=== PATIENT | male | born 1935 | race Caucasian/White ===

== ENCOUNTER 2019-12-31 11:15 | Outpatient (CLI) | payer MEDICARE, SELFPAY ==
--- NOTE | ~2019-12-31 | XR_ITS ---
XR foot LT standing 2V, XR foot RT standing 2V 12/31/2019 12:13 Indication: Osteoarthritis. Procedure: 2 views of each foot Comparison: No prior studies for comparison. Findings: There is osteoarthritis of the first metatarsal-phalangeal joints bilaterally, moderate on the left and mild on the right. There is bilateral hallux valgus. There are mild degenerative changes of the interphalangeal joints. Osteopenia. Lisfranc joint intact. No acute fracture or traumatic mal alignment. There are small degenerative calcaneal enthesophytes at the plantar surface bilaterally. Impression: 1: Mild-moderate polyarticular osteoarthritis most advanced at the first MTP joints with bilateral rock llux valgus. Reviewed, dictated and finalized at location A. Impression: 1: Mild-moderate polyarticular osteoarthritis most advanced at the first MTP chelsey ints with bilateral hallux valgus. Impression: 1: Mild-moderate polyarticular osteoarthritis most advanced at the first MTP chelsey ints with bilateral hallux valgus.
--- NOTE | ~2019-12-31 | XR_ITS ---
XR sacroiliac joints min 3V 12/31/2019 12:13 Indication: Unspecified osteoarthritis. Procedure: 3 views of the sacroiliac joints Comparison: No prior studies for comparison. Findings: There is moderate symmetric degenerative changes of the sacroiliac joints with possible par tial ankylosis. No acute fracture or traumatic malalignment. Moderate lower lumbar spondylosis. There are radiation therapy implant seeds overlying the expected location of the prostate bed. There is a right total hip arthroplasty. Impression: 1: Moderate symmetric degenerative changes of the sacroiliac joints. Reviewed, dictated and finalized at location A. Impression: 1: Moderate symmetric degenerative changes of the sacroiliac joints.
--- NOTE | ~2019-12-31 | XR_ITS ---
XR hand BI arthritis min 3V 12/31/2019 12:13 Indication: Osteoarthritis Procedure: 4 views of each hand Comparison: No prior studies for comparison. Findings: There is mild polyarticular osteoarthritis of the interphalangeal joints as well as the fir st CMC, MCP and IP joints. Osteopenia. No erosive changes. No acute fracture or traumatic malalignmen t. No foreign bodies. Impression: 1: Mild-moderate polyarticular osteoarthritis. Reviewed, dictated and finalized at location A. Impression: 1: Mild-moderate polyarticular osteoarthritis.
[2019-12-31 12:44] LABS: Hemoglobin 13.1 g/dL (14.0-18.0); Mean Corpuscular Hemoglobin 29.5 pg (26-34); Mean Corpuscular Volume 92.3 fl (80-100); Mean Platelet Volume 8.5 fl (7.4-10.4); Platelet Count Result 252 k/mm3 (150-375); Red Blood Count 4.44 M/mm3 (4.6-6.20); Red Cell Distribution Width 13.6 % (11.5-14.5); White Blood Count 7.7 K/mm3 (4.5-10.0)
[2019-12-31 12:56] LABS: Alanine Aminotransferase 14 U/L (4-50); Albumin Level 4.4 g/dL (3.5-5.1); Alkaline Phosphatase 89 U/L (38-126); Aspartate Amino Transferase 26 U/L (17-59); Bilirubin,Total 0.2 mg/dL (0.2-1.3); Blood Urea Nitrogen 28 mg/dL (9-20); CRP 1.5 mg/dL (<1.0); Carbon Dioxide 26 mmol/L (22-30); Chloride 106 mmol/L (98-107); Estimated Glomerular Filt Rate 58; Glucose 90 mg/dL (75-110); Potassium 4.8 mmol/L (3.4-5.0); Rheumatoid Factor < 8.6 IU/ML (<12); Sodium 138 mmol/L (137-145)
[2019-12-31 12:57] LABS: Add Urine Microscopic? YES; Appearance Urine Clear (Clear); Bacteria Urine Trace /hpf; Bilirubin Urine Negative (Negative); Blood Urine Negative (Negative); Color Urine Yellow (Yellow); Glucose Urine UA Negative (Negative); Ketones Urine Negative (Negative); Leukocyte Esterase Ur Negative LEU/UL (Negative); Mucus Urine Rare /lpf; Nitrate Urine Negative (Negative); Protein Urine Negative (Negative); RBC Urine 0-2 /hpf (0-2); Specific Grav Ur 1.024 (1.001-1.035); Squamous Epithelial Cell Urine Rare /hpf (Few); Urobilinogen Urine Negative mg/dL (<2.0); WBC Urine 0-3 /hpf
[2019-12-31 14:07] LABS: Erythrocyte Sedimentation Rate 16 mm/hr (0-20)
[2020-01-02 16:22] LABS: HLA B27 Positive (Negative)
[2020-01-03 12:00] LABS: Anti Cyclic Citrullinated Pept <16 Units (<20)
== END 2019-12-31 11:16 | disposition home or self-care (01) ==
PROVIDERS: PCP Family Medicine; Visit Provider Internal Medicine
DX: M19.041 Primary osteoarthritis, right hand (principal); M19.042 Primary osteoarthritis, left hand; M53.3 Sacrococcygeal disorders, not elsewhere classified; M19.071 Primary osteoarthritis, right ankle and foot; M19.072 Primary osteoarthritis, left ankle and foot; M20.11 Hallux valgus (acquired), right foot; M20.12 Hallux valgus (acquired), left foot
CPT/HCPCS: 36415; 72202; 73130; 73620; 80053; 81001; 85027; 85652; 86038; 86039; 86140; 86200; 86430; 86812

== ENCOUNTER 2020-04-05 11:04 | Outpatient (CLI) | payer MEDICARE, SELFPAY ==
--- NOTE | ~2020-04-05 | XR_ITS ---
EXAMINATION: XR lumbar spine min 4V DATE: 04/05/2020 11:44 INDICATION: Ankylosing spondylitis of the lumbosacral region TECHNIQUE: Anteroposterior, lateral, and bilateral oblique views of the lumbar spine, and cone-down l ateral view of the lumbosacral junction were obtained. COMPARISON: None. FINDINGS: There are 4 mm of anterolisthesis of L4 on L5. There is no fracture. There is lumbar dextro curvature. There is severe asymmetric loss of intervertebral disc space height on the left at L3-4. T here is moderate loss of intervertebral disc space height at L2-3 and L5-S1. The vertebral body heigh ts are maintained. There is severe facet osteoarthritis of the lower lumbar spine. Changes of right t otal hip arthroplasty are noted. Degenerative osteophytes project from the anterior endplates of mult iple vertebral bodies. Calcified atherosclerosis is noted. There are radiation seeds in the prostate. IMPRESSION: 1. Severe lumbar spondylosis without acute findings. Reviewed, dictated and finalized at location A.
[2020-04-05 12:52] LABS: CRP 2.4 mg/dL (<1.0)
[2020-04-05 12:55] LABS: Complement C3 114 mg/dL (88-165)
[2020-04-05 13:03] LABS: Erythrocyte Sedimentation Rate 28 mm/hr (0-20)
[2020-04-08 12:04] LABS: SS-A <1.0; SS-B <1.0
[2020-04-08 13:25] LABS: NIL 0.01 IU/mL; Quantiferon TB Plus, 1T NEGATIVE (NEGATIVE); TB1-NIL 0.01 IU/mL; TB2-NIL 0.01 IU/mL
[2020-04-15 15:46] LABS: SM Antibody <1.0 AI
[2020-04-15 15:47] LABS: SM/RNP Antibody <1.0 AI
== END 2020-04-05 11:05 | disposition home or self-care (01) ==
PROVIDERS: PCP Family Medicine; Visit Provider Internal Medicine
DX: M45.7 Ankylosing spondylitis of lumbosacral region (principal); M19.90 Unspecified osteoarthritis, unspecified site
CPT/HCPCS: 36415; 72110; 85652; 86140; 86160; 86225; 86235; 86480

== ENCOUNTER 2020-04-10 12:20 | Outpatient (CLI) | payer MEDICARE, SELFPAY ==
--- NOTE | ~2020-04-10 | MR_ITS ---
EXAMINATION: MRI SACRUM W/O CONTRAST DATE: 04/10/2020 13:49 INDICATION: Ankylosing spondylitis of the lumbosacral region. Polyarticular osteoarthritis. Left-side d low back/buttock pain. TECHNIQUE: Magnetic resonance imaging (MRI) of the sacroiliac joints was performed without intravenou s contrast. Sequences included sagittal T1-weighted FSE and fluid sensitive FSE STIR; oblique axial T1-weighted FSE, fluid sensitive FSE STIR and T1-weighted FS FSE; oblique coronal T2-weighted FSE, T1 -weighted FSE and fluid sensitive FSE STIR. Postcontrast oblique axial and coronal T1-weighted FS FSE were also obtained. COMPARISON: Sacroiliac joint radiographs dated 12/31/2019 FINDINGS: Magnetic corrales artifact associated with a right total hip arthroplasty which obscures the bone and s oft tissues in the immediate vicinity right acetabulum and hip joint space. More subtle tiny foci of signal artifact associated with multiple brachytherapy seeds in the region of the small either atroph ic or partially resected prostate. Mild diffuse bladder wall thickening with mildly trabeculated muco rambo contour likely related to chronic outlet obstruction. Multiple diverticula without adjacent infla mmatory stranding along the sigmoid colon. No pathologically enlarged pelvic or inguinal lymphadenopa thy. No free fluid in the pelvis. Lower lumbar spondylosis. This includes moderate disc height loss with vacuum phenomena at L5-S1 and mild right-sided disc height loss at L4-L5. There are disc bulges at both L4-L5 which contributes to moderate central canal stenosis and at L5-S1 contributing to minimal central canal stenosis. Bilater al facet osteoarthritis at L4-L5 and mild left and moderate right sided facet osteoarthritis at L5-S1 . Neural foraminal stenosis, moderate bilaterally at L4-L5 and on the right at L5-S1 and mild on the left at L5-S1. Relatively symmetric moderate inferior predominant nonuniform joint space narrowing at the bilateral sacroiliac joints with small osteophytes along the anterior margins of the joint space. There are no associated cortical erosions or appreciable subcortical reactive edema or enhancement along the joint lines to suggest an inflammatory sacroiliitis. IMPRESSION: 1. Moderate osteoarthritis at the bilateral sacroiliac joints with no erosions or appreciable inflamm atory changes to suggest an inflammatory sacroiliitis. 2. Moderate to severe lower lumbar spondylosis. Reviewed, dictated and finalized at location A. IMPRESSION: 1. Moderate osteoarthritis at the bilateral sacroiliac joints with no erosions or appreciable inflammatory changes to suggest an inflammatory sacroiliitis. 2. Moderate to severe lower lumbar spondylosis.
[2020-04-10 12:52] LABS: Estimated Glomerular Filt Rate 58
== END 2020-04-10 12:21 | disposition home or self-care (01) ==
PROVIDERS: PCP Family Medicine; Visit Provider Internal Medicine
DX: M45.7 Ankylosing spondylitis of lumbosacral region (principal); M15.9 Polyosteoarthritis, unspecified; M47.818 Spondylosis without myelopathy or radiculopathy, sacral and sacrococcygeal region; M47.816 Spondylosis without myelopathy or radiculopathy, lumbar region
CPT/HCPCS: 72197; A9577

== ENCOUNTER 2022-09-26 10:29 | Emergency (ER) | payer MEDICARE, SELFPAY ==
[2022-09-26 10:35] VITALS: BP 143/61; PULSE 83; RESP 14; TEMP 37; O2SAT 96
--- NOTE | 2022-09-26 10:55 | ED.SOB ---
HPI - SOB/Dyspnea General Chief Complaint: Shortness of Breath/Dyspnea Stated Complaint: Shortness of Breath Source: patient, family and RN notes reviewed History of Present Illness HPI Narrative: 87-year-old male presents to urgent care with daughter at side. Patient states he has been taking increasingly short of breath over the last month. Patient reports developing left-sided chest pain, not radiating, this morning. Patient states he had a pneumothorax this past January and his symptoms are similar today. Patient is also reporting increased weakness over last couple months. Denies any recent illness including fevers or chills. Some parts of this dictation were generated by voice recognition software and may contain typographical and/or grammatical inaccuracies. Related Data Home Medications Medication Instructions Recorded Confirmed aspirin 81 mg tablet,delayed 81 mg PO DAILY 07/21/19 09/26/22 release (Adult Low Dose Aspirin) loperamide 2 mg capsule (Imodium 2 mg PO DAILY PRN Diarrhea 07/21/19 09/26/22 A-D) metformin 500 mg tablet 750 mg PO BID 07/21/19 09/26/22 mqmyixpd-ruv-jsfds acid 0.4 1 tablet PO DAILY 07/21/19 09/26/22 mg-lycopene 300 mcg-lutein 250 mcg tablet (Centrum Silver) oxybutynin chloride 5 mg tablet 5 mg PO DAILY 07/21/19 09/26/22 oxycodone 10 mg tablet 10 mg PO Q6H PRN Pain 07/21/19 09/26/22 sertraline 100 mg tablet 100 mg PO DAILY 07/21/19 09/26/22 Allergies Allergy/AdvReac Type Severity Reaction Status Date / Time nitroglycerin Allergy Severe Other Verified 09/26/22 10:50 Penicillins Allergy Mild Itching Verified 04/13/20 14:05 Review of Systems Review of Systems: CONSTITUTIONAL: Denies fever, chills, or sweats. EYES: Denies visual changes, redness, or discharge. ENT: Denies otalgia and sore throat CARDIOVASCULAR: Reports chest pain RESPIRATORY: reports dyspnea GASTROINTESTINAL: Denies abdominal pain, nausea, vomiting, or diarrhea. GENITOURINARY: Denies dysuria or hematuria. SKIN: Denies rash or itching. MUSCULOSKELETAL: Denies back pain, joint pain, or myalgia. NEUROLOGIC: Reports generalized weakness. [facility]LY [facility] Past Medical History Medical History (Updated 09/26/22 @ 11:02 by Janice De Guzman, [employer]) Allergies Ankylosing spondylitis of lumbosacral region (~1954) Arthritis Cancer Diabetes Generalized osteoarthritis of multiple sites Prostate cancer Surgical History Surgical History H/O shoulder surgery History of hip surgery History of knee replacement Hx of cholecystectomy Family History Family History Mother Acute myocardial infarction Father Cancer Sibling Acute myocardial infarction Social History Social History Smoking packs per day: 1 Smoking cigarettes per day: 20.0 Years smoked: 60 Smoking pack-years: 60.00 Smoking status: Current every day smoker Alcohol intake: current Drinks per week: 2 Comments At the time of my signature, I reviewed and agree with the nursing past medical, surgical, social, and family history. There is no relevant family history pertinent to the patient complaint. Exam Narrative: GENERAL: This is a well-nourished, well-developed patient, in no apparent distress. HEAD: normocephalic, atraumatic. EYES: PERRL. Sclera clear/white. Vision is grossly intact. EARS: External ears normal, auditory canals clear and without drainage, TMs normal without perforation. Hearing grossly intact. NOSE: External nose normal with no obvious nasal discharge, nares without redness, no rhinorrhea. THROAT: Mucous membranes moist, posterior pharynx clear. NECK: Neck supple, non-tender without lymphadenopathy, masses or thyromegaly. CARDIOVASCULAR: Regular rate and rhythm without murmurs, gallops, or rubs. RESPIRATORY: Clear to auscultation. Breath sounds equal bilaterally. No wheezes,
== END 2022-09-26 11:23 | disposition short-term general hospital (02) ==
PROVIDERS: Emergency Provider Nurse Practitioner Family; PCP Family Medicine
DX: R06.00 Dyspnea, unspecified (principal); R07.9 Chest pain, unspecified; F17.210 Nicotine dependence, cigarettes, uncomplicated; M19.90 Unspecified osteoarthritis, unspecified site; E11.9 Type 2 diabetes mellitus without complications; Z85.46 Personal history of malignant neoplasm of prostate; M45.7 Ankylosing spondylitis of lumbosacral region
CPT/HCPCS: 99215; G0463

== ENCOUNTER 2023-02-12 10:02 | Outpatient (CLI) | payer MEDICARE, SELFPAY ==
[2023-02-12 10:41] LABS: Anion Gap 0 mmol/L (8-16); Blood Urea Nitrogen 31 mg/dL (9-20); Calcium 8.3 mg/dL (8.4-10.2); Carbon Dioxide 31 mmol/L (22-30); Chloride 106 mmol/L (98-107); Estimated Glomerular Filt Rate > 60; Glucose 157 mg/dL (65-110); Potassium 4.3 mmol/L (3.4-5.0); Sodium 137 mmol/L (137-145)
== END 2023-02-12 10:03 | disposition home or self-care (01) ==
LOC: ANHSURGERY 10:06
PROVIDERS: Anesthesiology; PCP Family Medicine; Visit Provider Urology
DX: Z01.818 Encounter for other preprocedural examination (principal); E11.9 Type 2 diabetes mellitus without complications
CPT/HCPCS: 36415; 80048

== ENCOUNTER 2023-02-14 03:21 | Day surgery (SDC) | payer MEDICARE, SELFPAY ==
[2023-02-08 09:19] VITALS: BMI 23.1
--- NOTE | 2023-02-08 09:46 | PC.NURSE ---
Addendum entered by Tatyana Hill RN 02/08/23 13:56: REVIEWED MEDS AND MEDICAL HX WITH DAUGHTER. SHE STATES THAT PT TAKES DULOXETINE AT NIGHT, SO WILL NOT GIVE MORNING OF SURGERY AND WILL GIVE NIGHT BEFORE USUAL. REVIEWED PRE-OP INSTRUCTIONS. SHE RELAYS UNDERSTANDING. Original Note: Report to the Outpatient Waiting Room, entrance under the green pavilion located off [facility], at time __6:30AM on date __02/14/23 . Planned Procedure Time: __8:30AM . Time changes happen often and if your time is changed the preop area will call you the afternoon before. - You and your visitor will be asked to self-screen and do not enter if you have any COVID symptoms. - A mask is optional within the hospital at this time. Patients may have clear liquids (water, carbonated beverages, clear teas, apple juice) until 3 hours prior to surgery with a maximum of 20 ounces. - No food from midnight until time of surgery Take the following medications with a SIP of water the morning of surgery: _AMLODIPINE, DULOXETINE, FLONASE NASAL SPRAY, STIOLTO INHALER, METOPROLOL, OXYCODONE DO NOT STOP ANY OF YOUR OTHER PRESCRIPTION MEDICATIONS PRIOR TO SURGERY ?EXCEPT THE FOLLOWING Medications to discontinue per physician ___PLAVIX & ASPIRIN- HOLD PER DR HAMMOND Date to take last dose Please no make-up, nail thai, hairspray, perfume, deodorant, or body powder the day of surgery. No jewelry (including any body piercings) or valuables the day of surgery, leave them at home. Please take a shower or bath the night before, or the morning of, surgery with an antibacterial soap. Wear comfortable, loose fitting clothing. Children are encouraged to wear pajamas. - Jewelry must be removed prior to entering the operating room. Rings and piercings that are not removed may be cut off. - The hospital will not accept responsibility for valuables. - Please leave all valuables, including medications, at home the day of surgery. If you are going home after surgery, a licensed trailer tank truck driver must drive you home. - NO public transportation without another adult if you receive anesthesia. - We recommend that an adult stay with you for 24 hours following discharge. - We also recommend that you do not drive, make important decision, drink alcoholic beverages, or take any drugs that were not prescribed by your health care provider for at least 24 hours after your discharge time. Follow any additional instructions given to you from your surgeon. If you or anyone in your household have experienced Covid symptoms in the past week, please notify your surgeon or the nurse liaison at the phone number below for possible testing. Telephone instructions given to __PATIENT and asked if any additional questions and then verbalized understanding. Patient advised to call surgeon office or pre surgery nurse liaison [phone] if any additional questions.
--- NOTE | 2023-02-14 06:23 | WPDHPUPDATE1 ---
History and Physical Update Update Date/Time: 02/14/23 06:23 History and Physical has been reviewed, including an updated exam of the patient. There are NO changes in the patient's condition. Risks, benefits, and alternatives have been discussed and questions answered. Patient agrees to proceed with procedure.
[2023-02-14 07:27] VITALS: BP 110/72; PULSE 119; RESP 16; TEMP 36.2; O2SAT 94
[2023-02-14] MEDS: LACTATED RINGERS 1,000 ML 30 ML IV CONT (07:30)
--- NOTE | 2023-02-14 07:45 | WPDANESEPPF ---
Anes - Initial Pre Proc Eval Procedure: Operation Date: 02/14/23 08:30 Proposed Procedures p Cystoscopy with Urethral Dilatation - Alexandre Bella MD Date/Time: 02/14/23 07:45 Surgeon: Alexandre Bella MD Pre Op Diagnosis: Hesitancy,low urinary tract sym Patient Data Age: 87 Gender: M Height: 1.78 m Weight: 75.7 kg Last Vital Signs Temp 36.2 C L 02/14/23 07:27 Pulse 119 H 02/14/23 07:27 Resp 16 02/14/23 07:27 BP 110/72 02/14/23 07:27 Pulse Ox 94 02/14/23 07:27 O2 Del Method Room Air 02/14/23 07:27 Allergies Allergy/AdvReac Type Severity Reaction Status Date / Time nitroglycerin Allergy Severe CONVULSIONS , Verified 02/14/23 06:48 IN ICU FOR SEVERAL DAYS Penicillins Allergy Mild Itching Verified 02/14/23 06:48 Home Medications Medication Instructions Recorded Confirmed Type aspirin 81 mg tablet,delayed 81 mg PO DAILY 07/21/19 02/08/23 History release (Adult Low Dose Aspirin) vtvnorir-ahj-rkrhd acid 0.4 1 tablet PO DAILY 07/21/19 02/08/23 History mg-lycopene 300 mcg-lutein 250 mcg tablet (Centrum Silver) oxycodone 10 mg tablet 10 mg PO Q6H PRN Pain 07/21/19 02/08/23 History amlodipine 5 mg tablet 5 mg PO DAILY 02/08/23 02/08/23 History atorvastatin 20 mg tablet 20 mg PO HS 02/08/23 02/08/23 History celecoxib 200 mg capsule 200 mg PO BID 02/08/23 02/08/23 History clopidogrel 75 mg tablet 75 mg PO DAILY 02/08/23 02/08/23 History duloxetine 60 mg capsule,delayed 60 mg PO HS 02/08/23 02/08/23 History release fluticasone propionate 50 2 spray intranasal DAILY PRN 02/08/23 02/08/23 History mcg/actuation nasal Congestion spray,suspension glipizide 5 mg tablet 7.5 mg PO BID 02/08/23 02/08/23 History metoprolol succinate 50 mg 50 mg PO DAILY 02/08/23 02/08/23 History tablet,extended release 24 hr tiotropium 2.5 mcg-olodaterol 2.5 2 inh inhalation DAILY 02/08/23 02/08/23 History mcg/actuation mist for inhalation (Stiolto Respimat) Patient hx anesthesia problems: none Family hx anesthesia problems: none Results Review: All pre-operative results and documents have been reviewed as part of the pre-operative evaluation. PMFSH Past Medical History Medical History Allergies Ankylosing spondylitis of lumbosacral region (~1954) Arthritis Cancer Diabetes Generalized osteoarthritis of multiple sites Prostate cancer Surgical History Surgical History H/O shoulder surgery History of hip surgery History of knee replacement Hx of cholecystectomy Family History Family History Mother Acute myocardial infarction Father Cancer Sibling Acute myocardial infarction Social History Social History Smoking packs per day: 1 Smoking cigarettes per day: 20.0 Years smoked: 75 Smoking pack-years: 75.00 Smoking status: Current every day smoker Tobacco type: cigarettes Alcohol intake: current Drinks per week: 7 Substance use: never Living arrangements: with family Additional living arrangements comments: [facility] Spiritual care concerns: No Anes - Eval Final PreProcedure Day of Procedure 02/14/23 07:45 Patient weight: normal Heart: irregular rhythm Lungs: clear to auscultation Airway: Mallampati scale class II Neurological: alert and oriented Last oral intake: >/= 8 hours ASA classification: IV Emergent: no Anesthetic plan: proceed Anesthesia type and monitoring: general GIVS and standard monitoring Results Review: All pre-operative results and documents have been reviewed as part of the pre-operative evaluation. Informed Consent: The patient's anesthetic plan and its attendant risks and benefits were discussed with the patient/family/POA. Questions were solicited and answers provided to the
[2023-02-14] MEDS: ceFAZolin 2 GM/D5W 50 ML 2 GM/50 ML BAG IVPB (09:19)
[2023-02-14 09:24] LABS: Glucose Point of Care 150 mg/dl (65-105)
[2023-02-14] MEDS: LIDOCAINE HCL 2% GEL UROJET 10 ML PKG MUCOUS MEM (09:37)
[2023-02-14 09:46] VITALS: BP 97/55; PULSE 78; RESP 12; O2SAT 96
--- NOTE | 2023-02-14 09:47 | W.PM.PROC2 ---
Procedure Note - Detailed Date of Procedure 02/14/23 Pre-op Diagnosis Bulbous urethral stricture Post-op Diagnosis Same Procedure Performed Cystoscopy, urethral dilatation Surgeon Alexandre Bella MD Anesthesia MAC Description of Procedure The patient was brought to the operative suite where he was prepped and draped in a routine sterile fashion while in a dorsal lithotomy position after the uneventful induction of a general LMA anesthetic. Cystoscopy was undertaken with a []cystoscope. There were no urethral strictures. The prostatic urethral estimated length was 2.0cm. There was no obstruction of the prostatic urethra with no median lobe enlargement. The bladder itself was endoscopically normal without foreign body or neoplasm. The bladder mucosa was without hyperemia. There was a single orthotopic ureteral orifice bilaterally with clear efflux of urine. Using the Dat sounds I dilated the urethra and bladder neck from 16-28 F. The bladder was emptied and the patient was taken to the recovery room in good condition Drains No Pathology None sent Complications No immediate complications Condition Stable
[2023-02-14 09:50] LABS: Glucose Point of Care 134 mg/dl (65-105)
[2023-02-14 10:00] VITALS: BP 111/55; PULSE 79; RESP 14; O2SAT 93
[2023-02-14 10:30] VITALS: BP 99/47; PULSE 78; RESP 14; O2SAT 94
[2023-02-14 10:45] VITALS: BP 111/55; PULSE 79; RESP 14
== END 2023-02-14 11:05 | disposition home or self-care (01) ==
PROVIDERS: PCP Family Medicine; Visit Provider Urology
PROC: 0T7D8ZZ Dilation of Urethra, Via Natural or Artificial Opening Endoscopic (ICD-10-PCS; CPT 52281; principal; 2023-02-14 08:30)
DX: N35.912 Unspecified bulbous urethral stricture, male (principal); E11.9 Type 2 diabetes mellitus without complications; Z85.46 Personal history of malignant neoplasm of prostate; F17.210 Nicotine dependence, cigarettes, uncomplicated; Z79.02 Long term (current) use of antithrombotics/antiplatelets; Z79.82 Long term (current) use of aspirin; Z79.84 Long term (current) use of oral hypoglycemic drugs; Z79.51 Long term (current) use of inhaled steroids
CPT/HCPCS: 52281; 82948; J0690; J2704; J7120

== ENCOUNTER 2024-05-11 13:12 | Emergency (ER) | payer MEDICARE, SELFPAY ==
--- NOTE | ~2024-05-11 | XR_ITS ---
EXAMINATION: XR finger 2nd LT min 2V DATE: 05/11/2024 14:07 INDICATION: Left hand second digit injury. TECHNIQUE: 3 views of left hand second digit were obtained. COMPARISON: Left hand radiographs 12/31/2019 FINDINGS: Alignment is normal. No fracture. There is moderate osteoarthritis of second distal interph alangeal joint and mild osteoarthritis of proximal interphalangeal joint. IMPRESSION: 1. Particular osteoarthritis. Reviewed, dictated and finalized at location A.
[2024-05-11 13:22] VITALS: BP 102/46; PULSE 86; RESP 20; TEMP 37.1; O2SAT 99
--- NOTE | 2024-05-11 13:25 | ED.WOUNDLAC ---
HPI - Wound/Laceration General Chief Complaint: Wound/Laceration Stated Complaint: Laceration To Left Hand Time Seen by Provider: 05/11/24 13:25 Source: patient Mode of arrival: ambulatory Limitations: no limitations History of Present Illness HPI narrative: 88-year-old male presents with laceration to left index finger. Patient was sharpening his lawnmower blade and left index finger hit against a cement sharp wheel. Range of motion and distal neurovascularly intact. Bleeding controlled on arrival. Unsure of last tetanus. All systems reviewed and negative except as noted above. Related Data Home Medications Medication Instructions Recorded Confirmed aspirin 81 mg tablet,delayed 81 mg PO DAILY 07/21/19 05/11/24 release (Adult Low Dose Aspirin) nqsypwon-vdw-dnnsb acid 0.4 1 tablet PO DAILY 07/21/19 05/11/24 mg-lycopene 300 mcg-lutein 250 mcg tablet (Centrum Silver) oxycodone 10 mg tablet 10 mg PO Q6H PRN Pain 07/21/19 05/11/24 amlodipine 5 mg tablet 5 mg PO DAILY 02/08/23 05/11/24 atorvastatin 20 mg tablet 20 mg PO HS 02/08/23 05/11/24 celecoxib 200 mg capsule 200 mg PO BID 02/08/23 05/11/24 duloxetine 60 mg capsule,delayed 60 mg PO HS 02/08/23 05/11/24 release fluticasone propionate 50 2 spray intranasal DAILY PRN 02/08/23 05/11/24 mcg/actuation nasal Congestion spray,suspension metoprolol succinate 50 mg 50 mg PO DAILY 02/08/23 05/11/24 tablet,extended release 24 hr glipizide 10 mg tablet 10 mg PO DAILY 05/11/24 05/11/24 Allergies Allergy/AdvReac Type Severity Reaction Status Date / Time nitroglycerin Allergy Severe CONVULSIONS , Verified 05/11/24 13:15 IN ICU FOR SEVERAL DAYS Penicillins Allergy Mild Itching Verified 05/11/24 13:15 Review of Systems Review of Systems: CONSTITUTIONAL: Denies fever, chills, or sweats. EYES: Denies visual changes, redness, or discharge. ENT: Denies rhinorrhea, congestion, sore throat, or otalgia. CARDIOVASCULAR: Denies chest pain, palpitations, or edema. RESPIRATORY: Denies cough or dyspnea. GASTROINTESTINAL: Denies abdominal pain, nausea, vomiting, or diarrhea. GENITOURINARY: Denies dysuria or hematuria. SKIN: reports laceration to left index finger MUSCULOSKELETAL: Denies back pain, joint pain, or myalgia. NEUROLOGIC: Denies headache, numbness, or weakness. PSYCHIATRIC: Denies anxiety or depression. All other systems reviewed are negative, except as documented in HPI. [facility] Past Medical History Medical History (Updated 05/11/24 @ 14:53 by Janett Pacheco NP) Allergies Ankylosing spondylitis of lumbosacral region (~1954) Arthritis Cancer Diabetes Generalized osteoarthritis of multiple sites Prostate cancer Surgical History Surgical History H/O shoulder surgery History of hip surgery History of knee replacement Hx of cholecystectomy Family History Family History Mother Acute myocardial infarction Father Cancer Sibling Acute myocardial infarction Social History Social History Smoking packs per day: 1 Smoking cigarettes per day: 20.0 Years smoked: 75 Smoking pack-years: 75.00 Smoking status: Current every day smoker Tobacco type: cigarettes Alcohol intake: current Drinks per week: 7 Substance use: never Living arrangements: with family Additional living arrangements comments: [facility] Spiritual care concerns: No Comments At time of signature, agree with nursing past medical, surgical, social and family history. There is no relevant family history pertinent to the presenting complaint. Exam Narrative: GENERAL: This is a well-nourished, well-developed patient, in no apparent distress. HEAD: normocephalic, atraumatic. EYES: PERRL. Sclera clear/white. Vision is grossly intact. EARS: External ears normal NOSE: Ext
[2024-05-11] MEDS: TETANUS/DIPHTHERIA TOXOIDS ADSORB 0.5 ML VIAL (*BKC) IM (13:47)
== END 2024-05-11 15:02 | disposition home or self-care (01) ==
PROVIDERS: Emergency Provider Nurse Practitioner Family; PCP Family Medicine
DX: S61.211A Laceration without foreign body of left index finger without damage to nail, initial encounter (principal); W26.8XXA Contact with other sharp object(s), not elsewhere classified, initial encounter; Z23 Encounter for immunization; F17.210 Nicotine dependence, cigarettes, uncomplicated; M19.90 Unspecified osteoarthritis, unspecified site; E11.9 Type 2 diabetes mellitus without complications; Z85.46 Personal history of malignant neoplasm of prostate; M45.7 Ankylosing spondylitis of lumbosacral region
CPT/HCPCS: 12001; 73140; 90471; 90714; 99213; G0463; J2003